=== PATIENT | female | born 1965 | race Caucasian/White ===

== ENCOUNTER 2021-04-07 13:32 | Emergency (ER) | payer MEDICAID ==
[2021-04-07] MEDS ORDERED: Ketorolac 60 MG/2 ML SDV IM ONE (14:55)
--- NOTE | 2021-04-07 16:08 | EDM.PDOC ---
ED HPI GENERAL MEDICAL PROBLEM - General Chief Complaint: ENT Problem Stated Complaint: ARM+EAR SWELLING SERVE EAR PAIN Time Seen by Provider: 04/07/21 14:08 Source of Information: Reports: Patient History Limitations: Reports: No Limitations - History of Present Illness INITIAL COMMENTS - FREE TEXT/NARRATIVE: 55-year-old female presents the emergency department today with complaints of severe left ear pain that has been ongoing for the past 2 months. Patient states that she contributes this to mold in her home. She is from [place] and states that her basement flooded and she has been cleaning that in the home. She states that during the day if she leaves her home she notices her ears do not feel as full but when she returns she states that the pain seems worse and is exacerbated. As stated above this had been going on for approximately the past 2 months. She is here visiting her son in [place]. She states the pain is stabbing pain. She has not taken anything for the discomfort as she states that she does not like to take medications. She states that she had a fever of 101 last evening. She also complains of a sore throat that started approximately 2 days ago and sinus congestion. She also complains of fullness noted to her right ear. She states she is otherwise healthy and does not take any medications. Left Pain Score (Numeric/FACES): 10 - Related Data Allergies Allergy/AdvReac Type Severity Reaction Status Date / Time bee venom protein (honey bee) Allergy Cannot Verified 04/07/21 14:08 Remember meperidine [From Demerol] Allergy Cannot Verified 04/07/21 14:08 Remember Penicillins Allergy Anaphylactic Verified 04/07/21 14:08 Shock Sulfa (Sulfonamide Allergy Hives Verified 04/07/21 14:08 Antibiotics) Home Meds: Home Meds Doxycycline [Vibra-Tabs] 100 mg PO Q12HR #20 tab 04/07/21 [Rx] Past Medical History Respiratory History: Reports: Asthma, Pneumonia, Recurrent Genitourinary History: Reports: UTI, Recurrent 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: Musculoskeletal History: Reports: Fracture Neurological History: Reports: Concussion Hematologic History: Reports: Anemia, Blood Transfusion(s), Iron Deficiency - Past Surgical History HEENT Surgical History: Reports: Adenoidectomy, Tonsillectomy Female Surgical History: Reports: Section Social & Family History - Tobacco Use Tobacco Use Status *Q: Never Tobacco User Second Hand Smoke Exposure: No - Caffeine Use Caffeine Use: Reports: Coffee, Tea - Recreational Drug Use Recreational Drug Use: No ED ROS ENT - Review of Systems Review Of Systems: Comprehensive ROS is negative, except as noted in HPI. ED EXAM, ENT - Physical Exam Exam: See Below Exam Limited By: No Limitations () General Appearance: Alert, WD/WN, No Apparent Distress Ears: Normal External Exam, Normal Canal, Hearing Grossly Normal, TM Obscured by Cerumen, Cerumen Impaction Nose: Normal Inspection Mouth/Throat: Normal Inspection, Normal Gums, Normal Lips, Normal Oropharynx, Normal Teeth Head: Atraumatic, Normocephalic Neck: Normal Inspection, Supple Respiratory/Chest: No Respiratory Distress, Lungs Clear, Normal Breath Sounds, No Accessory Muscle Use, Chest Non-Tender Cardiovascular: Normal Peripheral Pulses, Regular Rate, Rhythm, No Edema, No Murmur GI/Abdominal: Normal Bowel Sounds, Soft, Non-Tender, No Distention (Female) Exam: Deferred Rectal (Female) Exam: Deferred Back: Normal Inspection Extremities: Normal Inspection Neurological: Alert, Oriented, Normal Cognition Psychiatric: Normal Affect, Normal Mood Skin: Warm, Dry, Intact, Normal Color, No Rash Lymphatic: No Adenopathy Course - Vital Signs Text/Narrative:: As stated above, patient presents with severe left ear discomfort. On exam I am unable to visualize either of her tympanic membranes due to the fact that she is compacted with wax in both ears. Remainder of physical exam is unremarkable. We will have nursing staff irrigate her ears so that I can reevaluate. We will also test her for Covid due to her recent fever, chills, sore throat and sinus congestion. Patient will also be given a shot of Toradol as she states she has not taken anything for the discomfort and it is quite severe. Last Recorded V/S: Last Vital Signs Temp 98.0 F 04/07/21 14:05 Pulse 84 04/07/21 14:05 Resp 16 04/07/21 14:05 BP 115/69 04/07/21 14:05 Pulse Ox 98 04/07/21 14:05 - Orders/Labs/Meds Orders: Active Orders 24 hr Category Date Time Status Ear Irrigation [RC] ASDIRECTED Care 04/07/21 14:55 Active Labs: Laboratory Tests 04/07/21 Range/Units 15:35 Influenza Type A RNA Negative (NEGATIVE) Influenza Type B RNA Negative (NEGATIVE) SARS-CoV-2 RNA (ARLENE) Negative (NEGATIVE) Meds: Medications Discontinued Medications Generic Name Dose Route Start Last Admin Trade Name Reagan PRN Reason Stop Dose Admin Ketorolac Tromethamine 60 mg 04/07/21 14:55 04/07/21 15:37 Ketorolac 60 Mg/2 Ml Sdv IM 04/07/21 14:56 60 mg ONETIME ONE Administration - Re-Assessments/Exams Free Text/Narrative Re-Assessment/Exam: 04/07/21 16:05 Nursing staff notifies me that they have irrigated the patient's left ear however some blood is appreciated with irrigation. Reevaluation shows that the patient still has a fair amount of wax against the tympanic membrane. There is a small bit of blood noted around the edge of the wax at approximately 3:00 [place]. Ear canal is erythematous. I did have Dr. Stephens also evaluate the patient's ear and he recommends that we stop attempting to irrigate the patient's ear and place her on an antibiotic. 04/07/21 16:35 Influenza a and B are negative Covid is negative 04/07/21 16:44 Nursing staff was able to get a very large hard ball of wax out of the patient's right ear. Tympanic membrane is unremarkable. Right ear canal is slightly reddened however does not appear infected. Patient will be started on doxycycline 1 tab every 12 hours for total of 10 days. She does have a anaphylactic reaction to penicillins. She also complains now of pain to her right dorsal distal radial area. She does have some swelling and tenderness over the tendon. She states that at times lifting and turning her wrist is painful. She states that she has an injury to her right knee so she is constantly pulling herself up the stairs by the handrail with her right hand and she suspects that this aggravated it. Likely tendinitis to the right forearm. Recommend that she takes ibuprofen every 6-8 hours as needed and ice the area. Departure - Departure Time of Disposition: 16:46 Disposition: Home, Self-Care 01 Condition: Good Clinical Impression: Impacted cerumen of both ears, Tendinitis of right forearm Left otitis media Qualifiers: Otitis media type: unspecified Qualified Code(s): H66.92 - Otitis media, unspecified, left ear - Discharge Information Prescriptions: Doxycycline [Vibra-Tabs] 100 mg PO Q12HR #20 tab Instructions: Otitis Media, Adult, Tendinitis Referrals: PCP,None [Primary Care Provider] - Forms: ED Department Discharge Additional Instructions: You were seen in the emergency department with complaints of left ear pain. Your ears were irrigated per the nursing staff. Due to the pain and difficulty we were not able to get all the wax out of your left ear however it does appear to be infected. You will need to start taking antibiotic called doxycycline 100 mg every 12 hours for 10 days. Be sure to pleat the full course of antibiotics to be sure the infection clears up. Also recommend putting a couple of drops of olive oil in your ears every night before bed to loosen the wax and keep your ear canals clean. And as discussed to decrease congestion recommend taking Sudafed [id number] medication per label instructions. The pain in your right forearm is likely due to tendinitis and overuse injury. Recommend taking ibuprofen 600 mg every 6-8 hours as needed. It would be a good idea to take this around the clock for the next 48 hours and then as needed for the discomfort. May use an Fidel type of bandage for support. Also recommend ice 30 minutes at a time every 3 hours while awake for the next 48 hours to decrease inflammation. Should your condition worsen or change, do not hesitate returning to the emergency department. Covid, influenza A and influenza B testing was all negative today. Sepsis Event Note (ED) - Evaluation Sepsis Screening Result: No Definite Risk - Focused Exam Vital Signs: Vital Signs Temp Pulse Resp BP Pulse Ox 04/07/21 14:05 98.0 F 84 16 115/69 98 - My Orders Last 24 Hours: My Active Orders 04/07/21 14:55 Ear Irrigation [RC] ASDIRECTED - Assessment/Plan Last 24 Hours: My Active Orders 04/07/21 14:55 Ear Irrigation [RC] ASDIRECTED
[2021-04-07 16:23] LABS: CORONAVIRUS COVID-19 NAA NEGATIVE (NEGATIVE)
== END 2021-04-07 17:05 | disposition home or self-care (01) ==
LOC: JD.ED 13:32
DX: H66.92 Otitis media, unspecified, left ear (principal); H61.22 Impacted cerumen, left ear; M77.8 Other enthesopathies, not elsewhere classified; Z91.030 Bee allergy status; Z88.0 Allergy status to penicillin; Z88.2 Allergy status to sulfonamides; Z20.822 Contact with and (suspected) exposure to COVID-19
CPT/HCPCS: 0240U; 96372; 99283; J1885

== ENCOUNTER 2023-11-02 20:46 | Emergency (ER) | payer MEDICAID ==
[2023-11-02 22:00] LABS: BASOPHILS PERCENT AUTO 0.2 % (0.0-1.0); EOSINOPHILS PERCENT AUTO 0.2 % (0.0-6.0); HEMATOCRIT 43.9 % (37.0-47.0); HEMOGLOBIN 14.6 gm/dl (12.0-16.0); IMMATURE GRAN ABSOLUTE AUTO 0.01 K/mm3 (0.00-0.05); IMMATURE GRAN PERCENT AUTO 0.2 % (0.0-0.4); LYMPHOCYTES ABSOLUTE AUTO 0.6 K/mm3 (1.0-4.8); LYMPHOCYTES PERCENT AUTO 13.4 % (24.0-44.0); MEAN CORPUSCULAR HEMOGLOBIN 30.4 pg (28.0-32.0); MEAN CORPUSCULAR HGB CONC 33.3 g/dl (32.0-36.0); MEAN CORPUSCULAR VOLUME 91.5 fl (83.0-99.0); MEAN PLATELET VOLUME 11.4 fl (9.4-12.3); MONOCYTES ABSOLUTE AUTO 0.4 K/mm3 (0.0-0.8); MONOCYTES PERCENT AUTO 8.1 % (0.0-8.0); NEUTROPHILS ABSOLUTE AUTO 3.7 K/mm3 (1.8-7.7); NEUTROPHILS PERCENT AUTO 77.9 % (41.0-71.0); PLATELET COUNT,PLT 203 K/mm3 (150-400); WHITE BLOOD CELL COUNT,WBC 4.79 K/mm3 (3.9-11.3)
[2023-11-02] MEDS: Sodium Chloride 0.9% 1,000 ML IV ONE (22:06)
[2023-11-02] MEDS: Prochlorperazine 5 MG in Sodium Chloride 0.9% 50 ML IV ONE (22:07)
[2023-11-02 22:11] LABS: ALBUMIN 3.9 g/dl (3.4-5.0); ANION GAP 15.5 (5-15); BILIRUBIN TOTAL 0.7 mg/dL (0.2-1.0); BUN/CREATININE RATIO 18.8 (14-18); CALCIUM 9.3 mg/dL (8.5-10.1); CREATININE 0.8 mg/dL (0.55-1.02); EST CRCL DRUG DOSING (CG) 67.8 mL/min; POTASSIUM,K 3.5 mEq/L (3.5-5.1); PROTEIN TOTAL,TP 7.7 g/dl (6.4-8.2)
== END 2023-11-03 02:08 | disposition home or self-care (01) ==
LOC: JD.ED 20:46
DX: E86.0 Dehydration (principal); R51.9 Headache, unspecified; R19.7 Diarrhea, unspecified; R11.2 Nausea with vomiting, unspecified; Z88.2 Allergy status to sulfonamides; Z88.0 Allergy status to penicillin; Z91.030 Bee allergy status; Z88.8 Allergy status to other drugs, medicaments and biological substances
CPT/HCPCS: 36415; 80053; 83690; 84484; 85025; 93005; 96361; 96365; 99285; J0780; J3490; J7030; 93010; 99282